=== PATIENT | female | born 1990 | race Caucasian/White ===

== ENCOUNTER 2021-11-19 17:04 | Outpatient (CLI) | payer OTHER ==
--- NOTE | 2021-11-19 18:15 | Ultrasound Report ---
PROCEDURE: OB First Trimester w/TV INDICATIONS: POSITIVE TEST OUTSIDE/PRIOR DATING DATA: Last menstrual period (LMP): September 19, 2021. LMP-based estimated date of delivery (FIDEL): June 26, 2022. First dating scan (date ): November 19, 2021. Estimated date of delivery (FIDEL) from first dating scan: June 28, 2022. TECHNIQUE: Real-time scanning was performed of the fetus and maternal pelvic organs, with image documentation. COMPARISON: None. FINDINGS: Embryo: L[place]ax-rump length measures 1.9 cm, compatible with an 8 week, 3 day gestation Heart rate: 189 bpm Measurement variability in dating: +/- 4 weeks by LMP, +/- 7 days by mean sac diameter (use before 6 weeks gestation if crown-rump length not able to be measured), +/- 5 days by crown-rump length (6-12 weeks gestation). Maternal organs: Ovaries demonstrate a right corpus luteum. IMPRESSION: 1. Early single intrauterine gestation as detailed above. Reviewed by: Mike Watkins MD on 11/19/2021 6:14 PM PST Approved by: Mike Watkins MD on 11/19/2021 6:14 PM PST Station ID: [id number]
== END 2021-11-19 17:05 | disposition home or self-care (01) ==
LOC: DI 17:04
PROVIDERS: ATTEND Nurse Practitioner Obstetrics & Gynecology
DX: Z32.01 Encounter for pregnancy test, result positive (principal)

== ENCOUNTER 2021-12-06 14:32 | Outpatient (CLI) | payer OTHER ==
[2021-12-06 15:03] LABS: BASOPHILS % (AUTO) 0.2 %; EOSINOPHILS # (AUTO) 0.1 10^3/uL (0.0-0.7); EOSINOPHILS % (AUTO) 1.2 %; HGB - HEMOGLOBIN 13.4 g/dL (12.0-16.0); LYMPHOCYTES % (AUTO) 22.6 %; MEAN CORPUSCULAR HEMOGLOBIN 28.5 pg (27.0-31.0); MEAN CORPUSCULAR HGB CONC 33.5 g/dL (32.0-36.0); MEAN CORPUSCULAR VOLUME 85.1 fL (81.0-99.0); MEAN PLATELET VOLUME 11.2 fL (7.9-10.8); MONOCYTES # (AUTO) 0.7 10^3/uL (0.0-1.0); MONOCYTES % (AUTO) 7.6 %; NEUTROPHILS # (AUTO) 6.1 10^3/uL (1.5-6.6); NEUTROPHILS % (AUTO) 67.8 %; PLT - PLATELET COUNT 247 10^3/uL (130-450); RED CELL DISTRIBUTION WIDTH 14.1 % (12.0-15.0)
[2021-12-06 15:11] LABS: BILIRUBIN,URINE NEGATIVE (NEGATIVE); GLUCOSE, URINE (UA) NEGATIVE (NEGATIVE); KETONES,URINE (UA) NEGATIVE (NEGATIVE); LEUKOCYTE ESTERASE, URINE NEGATIVE (NEGATIVE); NITRITE,URINE NEGATIVE (NEGATIVE); OCCULT BLOOD,URINE NEGATIVE (NEGATIVE); PH,URINE 6.5 PH (5.0-7.5); PROTEIN,URINE NEGATIVE (NEGATIVE); UROBILINOGEN,URINE 0.2 (NORMAL) E.U./dL (NORMAL)
[2021-12-06 16:06] LABS: CLARITY,URINE CLEAR (CLEAR)
[2021-12-06 16:43] LABS: WBC,URINE 0-3 /HPF (0-5)
[2021-12-06 16:44] LABS: BACTERIA,URINE Rare /HPF (None Seen); RBC,URINE None Seen /HPF (0-5); SQUAMOUS EPITHELIAL CELL,UR FEW Squamous (<= Few)
[2021-12-07 09:55] LABS: HEPATITIS B SURFACE ANTIGEN NON-REACTIVE (NON-REACTIVE)
[2021-12-07 11:50] LABS: HEPATITIS C ANTIBODY NON-REACTIVE (NON-REACTIVE)
[2021-12-07 13:45] LABS: HIV AG/AB 4TH GEN NON-REACTIVE (NON-REACTIVE)
== END 2021-12-06 14:33 | disposition home or self-care (01) ==
LOC: LAB 14:32
PROVIDERS: ATTEND Nurse Practitioner Obstetrics & Gynecology
DX: Z36.89 Encounter for other specified antenatal screening (principal)
CPT/HCPCS: 36415; 81001; 85025; 86592; 86762; 86787; 86803; 86850; 86900; 86901; 87086; 87340; 87389

== ENCOUNTER 2021-12-17 12:01 | Outpatient (CLI) | payer OTHER ==
[2021-12-21 16:47] LABS: CIGARETTE SMOKER? NOT GIVEN; DONOR AGE: EGG RETRIEVAL NOT GIVEN; DONOR EGG NO; HX OF NEURAL TUBE DEFECTS NO; INSULIN DEPEND DIABETIC NO; MATERNAL WEIGHT 211 lbs; NUMBER OF FETUSES 1; PREV PREGNANCY DOWN SYND NO
== END 2021-12-17 12:02 | disposition home or self-care (01) ==
LOC: LAB.N 12:01
PROVIDERS: ATTEND Nurse Practitioner Obstetrics & Gynecology
DX: Z36.8A Encounter for antenatal screening for other genetic defects (principal)

== ENCOUNTER 2022-01-12 14:36 | Outpatient (CLI) | payer OTHER | END 2022-01-12 14:37 | disposition home or self-care (01) | LOC: LAB.N 14:36 | PROVIDERS: ATTEND Obstetrics & Gynecology | DX: Z36.8A Encounter for antenatal screening for other genetic defects (principal) | CPT/HCPCS: 36415; 82105; 82677; 84163; 84702; 86336 ==

== ENCOUNTER 2022-02-01 16:59 | Outpatient (CLI) | payer OTHER ==
--- NOTE | 2022-02-02 11:30 | Ultrasound Report ---
PROCEDURE: OB Detailed Eval INDICATIONS: SUPERVISION OF OUTSIDE/PRIOR DATING DATA: Last menstrual period (LMP): 09/29/2021. LMP-based estimated date of delivery (FIDEL): 06/26/2022. First dating scan (date and location): 11/19/2021. Estimated date of delivery (FIDEL) from first dating scan: 06/28/2022. The below data below was generated using the initial ultrasound generated FIDEL of 06/28/2022 TECHNIQUE: Real-time scanning was performed of the fetus, with image documentation and biometric measurements. Endovaginal scanning: Not performed COMPARISON: 11/19/2021 FINDINGS: General: A single living intrauterine gestation is present. Presentation: Variable Placenta: Placental position is anterior, without previa. Amniotic fluid index: 15.1 cm, normal for gestational age. heart rate: 160 beats per minute. Maternal cervical canal: 5.2 cm long; normal length is 2.5 cm or more. biometrics: Biparietal diameter: 4.2 cm Head circumference: 16 cm Abdominal circumference: 14.6 cm Femur length: 2.6 cm Estimated gestational age from initial scan: 19 weeks 0 days. Composite gestational age from present scan: 18 weeks 6 days Estimated weight and percentile: 269 g, 46th percentile Measurement variability in biometric dating: +/- 10 days from 12-20 weeks gestation, +/- 2 weeks from 20-30 weeks gestation, +/- 3 weeks at 30 weeks gestation or later. Anatomic survey: Neuro: Ventricles are normal at less than 10 mm. Cisterna magna is normal at 3-11 mm. Cerebellum i s normal in size and morphology. Nuchal skin fold: Normal at less than 6 mm between 14 and 20 weeks gestational age. Face: Facial profile not seen due to position. Spine: No evidence for spina bifida. Heart: 4-chambered heart is present, with normal ventricular outflow tracts. Diaphragm: Diaphragm is intact. Stomach: Left-sided stomach is present. Kidneys: No hydronephrosis. Normal is less than 5 mm in 2nd trimester, less than 7 mm in 3rd trimester. Cord: 3 vessel cord has orthotopic insertion. Bladder: Normal in size. Extremities: All 4 extremities are visualized. IMPRESSION: Single live intrauterine gestation with estimated age of 18 weeks 6 days based on biometric par ameters. Normal EMILEE. Facial profile not seen due to position. Anatomic survey otherwise normal. Reviewed by: Tuckre Grier MD on 02/02/2022 11:29 AM PDT Approved by: Tucker Grier MD on 02/02/2022 11:29 AM PDT Station ID: [id number]
== END 2022-02-01 17:00 | disposition home or self-care (01) ==
LOC: DI 16:59
PROVIDERS: ATTEND Obstetrics & Gynecology
DX: Z34.02 Encounter for supervision of normal first pregnancy, second trimester (principal); Z3A.18 18 weeks gestation of pregnancy; Z36.89 Encounter for other specified antenatal screening

== ENCOUNTER 2022-02-24 18:56 | Outpatient (CLI) | payer OTHER ==
--- NOTE | 2022-02-25 14:37 | Ultrasound Report ---
PROCEDURE: OB F/U or Repeat INDICATIONS: SUPERVISION OF OUTSIDE/PRIOR DATING DATA: Last menstrual period (LMP): 09/19/2021. LMP-based estimated date of delivery (FIDEL): 06/26/2022. First dating scan (date and location): 11/19/2021. Estimated date of delivery (FIDEL) from first dating scan: 06/28/2022. The below data below was generated using the ultrasound FIDEL of 06/28/2022 TECHNIQUE: Real-time scanning was performed of the fetus, with image documentation and biometric measurements. COMPARISON: OB ultrasound 02/01/2022, 11/19/2021 FINDINGS: General: A single living intrauterine gestation is present. Presentation: Transverse Placenta: Placental position is anterior, without previa. Amniotic fluid index: 15.5 cm, within normal limits for gestational age. Largest pocket 5.9 cm. heart rate: 135 beats per minute. Maternal cervical canal: 4.2 cm long; normal length is 2.5 cm or more. biometrics: Estimated gestational age from initial scan: 22 weeks 2 days Other: profile appears within normal limits. IMPRESSION: Single live intrauterine with ultrasound gestational age of 22 weeks 2 days. profile appears within normal limits. Reviewed by: Brooklyn Clark MD on 02/25/2022 2:36 PM PDT Approved by: Brooklyn Clark MD on 02/25/2022 2:36 PM PDT Station ID: [id number]
== END 2022-02-24 18:57 | disposition home or self-care (01) ==
LOC: DI 18:56
PROVIDERS: ATTEND Obstetrics & Gynecology
DX: Z34.92 Encounter for supervision of normal pregnancy, unspecified, second trimester (principal)